=== PATIENT | male | born 1965 | race Caucasian/White ===

== ENCOUNTER 2025-03-08 06:58 | Emergency (ER) | payer BC, SELFPAY ==
--- NOTE | ~2025-03-08 | CT_ITS ---
EXAMINATION: CT ABDOMEN PELVIS WITHOUT IV CONTRAST HISTORY: hx of kidney stones, R side CV tenderness COMPARISON: Comparison is made with the prior examination dated 10/16/2018. TECHNIQUE: CT scan of the abdomen and pelvis was performed without contrast using standard departmental protocol. Coronal and sagittal reformatted images were generated and reviewed. Oral contrast material was not administered per department protocol. This CT exam was performed with one or more of the following dose reduction techniques: automated exposure control, adjustment of the mA and/or kV according to patient size, use of iterative reconstruction technique. DLP: 639 mGy-cm FINDINGS: LOWER CHEST: There is elevation of the right hemidiaphragm. The visualized lung bases are clear. There is no pleural effusion. CARDIOVASCULATURE: The heart is normal in size. There is no pericardial effusion. LIVER: The liver is normal in size and contour. The liver has an unremarkable unenhanced appearance. GALLBLADDER / BILE DUCTS: The gallbladder is unremarkable. There is no intra or extrahepatic biliary ductal dilatation. SPLEEN: The spleen is normal in size and has an unremarkable unenhanced appearance. PANCREAS: The pancreas has an unremarkable unenhanced appearance. ADRENAL GLANDS: Unremarkable. KIDNEYS/RETROPERITONEUM: There are multiple punctate nonobstructing calculi in the right kidney. Multiple nonobstructing left renal calculi are noted measuring up to 2 mm in size. There is mild right hydroureteronephrosis to the level of a 4 mm UVJ calculus. LYMPH NODES: No retroperitoneal lymphadenopathy is identified in the abdomen or pelvis. VASCULATURE: The abdominal aorta is normal in caliber. MESENTERY/PERITONEUM: No free fluid. No masses. There is no free intraperitoneal gas. STOMACH: There is a small hiatal hernia. The remainder of the stomach is unremarkable without intravenous contrast. SMALL BOWEL: The small bowel is normal in caliber. COLON: The colon is unremarkable. APPENDIX: Normal. URINARY BLADDER/PELVIC ORGANS: The urinary bladder is unremarkable. The prostate is normal in size. BONES / SOFT TISSUES: No suspicious bony or soft tissue abnormalities. CT/CT abdomen pelvis wo IV con IMPRESSION: Mild right hydroureteronephrosis to the level of a 4 mm UVJ calculus. Bilateral nephrolithiasis as described. Electronically signed by: Catalino Vizcarra MD 03/08/2025 08:06 AM [facility]
[2025-03-08 07:04] VITALS: BP 140/71; PULSE 76; RESP 18; TEMP 36.7; O2SAT 96; BMI 31.1
--- OUTSIDE RECORDS SUMMARY | 2025-03-08 07:26 | XMS_ITS | Encounter Summary ---
Author Organization [employer] Address [address] [place] [address] Care Team Providers Care Fuel Retrofitting Technician Name Role Phone Marina Rivero MD Primary Care Prov ider Reason for Visit * Reason Comments Med Refill Encounter Details Date Type Department Care Team ([facility] Contact Info) Description 03/05/2025 Telephone Adult Medicine [facility] [address] [place] [address] Marina Rivero MD [address] [place], [place] Social History Tobacco Use Types Packs/Day Years Used Date Smoking Tobacco: Former Smokeless Tobacco: Never Alcohol Use Standard Drinks/Week Comments No 0 (1 standard drink = 0.6 oz pur e alcohol) Housing Instability Answer Date Recorde d Are you worried that in the next 2 months you may not have stable housing? No 12/27/2024 Food Access & Nutrition Answer Date Rec orded Do you have access to a vari ety of food including fruits and vegetables? Yes 12/27/2024 Health Literacy Answer Date Recorded How often do you need to hav e someone help you when you read instructions, pamphlets, or other written material from your doctor or pharmacy? Never 12/27/2024 Caregiver: How often do you need to have someone help you when you read instructions, pamphlets, or other written material from your doctor or pharmacy? Not on file 12/27/2024 Financial Risk Answer Date Recorded How hard is it for you to pa y for the very basics like food, housing, medical care, and air conditioning / heating? Not very hard 12/27/2024 Transportation Answer Date Recorded Has the lack of transportati on kept you from meetings, work, or from getting things needed for daily living? No Has the lack of transportati on kept you from medical appointments or from getting medications? No 12/27/2024 Social Isolation Answer Date Recorded How often do you feel lonely or isolated from th ose around you? Never 12/27/2024 Food Risk Answer Date Recorded Within the past 12 months we worried whether our food would run out before we got money to buy more. Never true 12/27/2024 Within the past 12 months th e food we bought just didn't last and we didn't have money to get more. Never true 12/27/2024 Dependent Care Answer Date Recorded Do you need help finding or paying for care for your loved ones. For example, early childhood education worker or elderly care for an older adult? No 12/27/2024 Education Answer Date Recorded Do you think completing more education or training, like finishing a GED, going to college, or learning a trade, would be helpful for you? No 12/27/2024 Employment and Income Answer Date Recor ded During the last four weeks, have you been actively looking for work? No 12/27/2024 Living Situation Answer Date Recorded What is your living situation? Unrecognized valu e 12/27/2024 Sex and Gender Information Value Date Recorded Sex Assigned at Not on file Legal Sex Male 5:19 AM EST Gender Identity Not on file Sexual Orientation Not on file documented as of this encounter Ordered Prescriptions Prescription Sig Dispense Quantity Refills Last Filled Start Date End Date Ozempic 1 mg/dose (4 mg/3 mL) injection penIndications:Type 2 diabetes mellitus in patient with obesity (CMS/HCC V24, CMS/[facility] V28),Class 1 obesity due to excess calories with serious comorbidity and body mass index (BMI) of 31.0 to 31.9 in adult INJECT 1 MG UNDER THE SKIN EVERY 7 DAYS 9 mL 03/05/2025 documented in this encounter Progress Notes * AILIN Child - 03/05/2025 12:07 PM EST Rx approved, however patient overdue for appt. Please call to schedule with PCP documented in this encounter Plan of Treatment Not on file documented as of this encounter Visit Diagnoses Diagnosis Type 2 diabetes mellitus with obesity Class 1 obesity due to excess calories with serious comorbidity and body mass index (BMI) of 31.0 to 31.9 in adult documented in this encounter Discontinued Medications Medication Sig Discontinue Reason Start Date End Da te semaglutide (Ozempic) 1 mg/dose (4 mg/3 mL) injection penIndications:Type 2 diabetes mellitus in patient with obesity (CMS/HCC V24, CMS/HCC V28),Class 1 obesity due to excess calories with serious comorbidity and body mass index (BMI) of 31.0 to 31.9 in adult Inject 1 mg under the skin every 7 (seven) days. 12/27/2024 03/05/2025 documented as of this encounter Additional Health Concerns Assessment Noted Time PHQ-9 Depression Total Score: 0 12/28/19 1:00 PM EDT documented as of this encounter Care Teams Fuel Retrofitting Technician Relationship Specialty Start Date End Date Marina Rivero MD [address] [place] [phone] PCP - General Internal Medicine 03/23/24 documented as of this encounter
--- OUTSIDE RECORDS SUMMARY | 2025-03-08 07:26 | XMS_ITS ---
Author Name [facility] Organization Unknown Care Team Organization Name Specialty Phone Email Start Date End Da te [facility] Marina Ward Primary Care 01/19/2023 11/08/2023 [facility] NAIMA GAVIRIA Primary Care 12/23/2022 11/08/2023 [facility] Termed, PROVIDER Primary Care 01/27/202210/20
--- OUTSIDE RECORDS SUMMARY | 2025-03-08 07:26 | XMS_ITS | Clinical Summary ---
Author Organization [facility] [address] [place] [address] [place] [phone] Phone Care Team Providers Care White Metal Corrosion Proofer Name Role Phone Marina Rivero MD Primary Care Prov ider Allergies Active Allergy Reactions Criticality Noted Date Comments Oxycodone-Acetaminophen Itching Low 10/12/2011 Medications blood sugar diagnostic (FreeStyle Lite Strips) test strip 1 Strip by In Vitro route daily. 09/08/19 24 Active FREESTYLE LANCETS MISC 1 each by Not Applicable route 1 (one) time each day. 09/08/19 24 Active blood glucose control high,low (FreeStyle Control) solution Use as directed with test strips 01/21/20 23 Active fluticasone propion-salmete roL (Wixela Inhub) 100-50 mcg/dose diskus inhaler Inhale 1 puff by mouth 2 (two) times a day. 180 each 1 07/15/19 25 Active atorvastatin (LIPITOR) 40 mg tablet Take 1 tablet (40 mg total) by mouth 1 (one) time each day. 90 tablet 1 12/28/19 25 Active Ventolin HFA 90 mcg/actuation inhaler INHALE 2 PUFFS INTO THE LUNGS EVERY 4 HOURS NEEDED FOR COUGH OR WHEEZING 18 g 01/05/20 25 Active Ozempic 1 mg/dose (4 mg/3 mL) injection penIndications: Type 2 diabetes mellitus in patient with obesity (CMS/HCC V24, CMS/HCC V28),Class 1 obesity due to excess calories with serious comorbidity and body mass index (BMI) of 31.0 to 31.9 in adult INJECT 1 MG UNDER THE SKIN EVERY 7 DAYS 9 mL 03/05/20 Active semaglutide (Ozempic) 1 mg/dose (4 mg/3 mL) injection penIndications: Type 2 diabetes mellitus in patient with obesity ([facility] V24, [facility] V28),Class 1 obesity due to excess calories with serious comorbidity and body mass index (BMI) of 31.0 to 31.9 in adult Inject 1 mg under the skin every 7 (seven) days. 9 mL 12/28/19 25 025 Discontinued Active Problems Problem Noted Date Diagnosed Date Mild persistent asthma without complication 08/20 Type 2 diabetes mellitus wit hout complication, without long-term current use of insulin 01/08/2021 Obesity (BMI 30.0-34.9) 12/11/2020 Type 2 diabetes mellitus with obesity 11/04/2020 Overview (12/20/2024): 12/20/24 Regulatory IMO Update Obstructive sleep apnea 09/09/2015 Urolithiasis 06/07/2012 Asthma 05/03/2012 Knee pain 12/17/2011 Overview (01/10/2024): Sees Ortho - Dr. Sandhu, cortisone shots Acid reflux 12/17/2011 Dyslipidemia 10/12/2011 Encounters Date Type Department Care Team Description 03/05/2025 Telephone Adult Medicine [address] [phone] Marina Rojas MD 12/28/2024 Results Follow-Up Adult Medicine [address] [phone] Sherrell Stevenson PA 12/27/2024 1:15 PM EDT Office Visit Adult Medicine [address] [phone] Sherrell [place] PA Type 2 diabetes mellitus with obesity (Primary Dx); Hypercholesterolemia ; Class 1 obesity due to excess calories with serious comorbidity and body mass index (BMI) of 31.0 to 31.9 in adult; Acute bacterial sinusitis; Cough, unspecified type from Last 3 Months Immunizations Immunization Administration Dates Next Due Influenza trivalent, with pr eservative (Fluzone; Afluria) 6mo and older 05/27/2009 Pfizer SARS-CoV-2 COVID-19, mRNA, LNP-S, preservative free 07/18/2020,06/26/2020 Pneumococcal polysaccharide 23 valent (Pneumovax 23) 2yo and older 06/05/2013 Td Tetanus diptheria (Tdvax) 7yo and older 04/04 Tdap Tetanus diptheria acell ular pertussis (Boostrix; Adacel) 7yo and older 05/27/2009 Surgical History Surgery Date Site/Laterality Comments OTHER SURGICAL HISTORY PROCEDURE: HISTORY OTHER; COMMENT: cyst in chest removed as baby ELBOW SURGERY PROCEDURE: HISTORICAL ELBOW SURGERY; COMMENT: ORIF FOOT SURGERY PROCEDURE: HISTORICAL FOOT SURGERY; COMMENT: left ankle tendon repair VASECTOMY PROCEDURE: HISTORICAL VASECTOMY Medical History Medical History Date Comments Esophageal reflux DX:Esophageal reflux Unspecified essential hypertension DX:Unspecified essential hypertension Asthma 05/03/2012 DX:Asthma Family History Medical History Relation Name Comments CABG Brother Diabetes Brother Asthma Father mother and brot her, and kids Cataracts Father Heart attack Father x3, diabetes, a sthma, cataract, hypertension Lung cancer Maternal Grandfather Cataracts Mother Heart attack Mother , asthma, c ataract Stroke Paternal Grandfather Strabismus Son Blindness Neg Hx Colon cancer Neg Hx Glaucoma Neg Hx Macular degeneration Neg Hx Prostate cancer Neg Hx Relation Name Status Comments Brother Alive Father Maternal Grandfather Mother Paternal Grandfather Son Social History Tobacco Use Types Packs/Day Years [...] care for your loved ones. For example, child psychology teacher or elderly care for an older adult? [...] on file Sexual Orientation Not on file Last Filed Vital Signs Vital Sign Reading Time Taken Comments Blood Pressure 130/79 12/27/2024 12:51 PM EDT Pulse 60 12/27/2024 12:51 PM EDT Temperature 36.4 C (97.6 F) 12/27/2024 12:51 PM EDT Respiratory Rate 18 12/27/2024 12:51 PM EDT Oxygen Saturation 97% 12/27/2024 12:51 PM EDT Inhaled Oxygen Concentration - - Weight 95.7 kg (211 lb) 12/27/2024 12:51 PM EDT Height 175.3 cm (5' 9 ) 12/27/2024 12:51 PM EDT Body Mass Index 31.16 12/27/2024 12:51 PM EDT Plan of Treatment Health Maintenance Due Date Last Done Comments Hepatitis B Vaccines (1 of 3 - 19+ 3-dose series) 1984 Pneumococcal Vaccine: 50+ Years (2 of 2 - PCV) 06/05/2014 06/05/2013 RSV Immunization Adult Patients (1 - Risk 50-74 years 1-dose series) 07/18/2015 Zoster Vaccines (1 of 2) 07/18/2015 HIV Screening 02/28/2022 Diabetes: Annual Retina Eye Exam 11/09/2024 11/10/2023, 07/22/2023 Colorectal Cancer Screening: FIT-DNA (Cologuard) 06/03/2025 06/03/2022, 06/03/2022, 06/03/2022 Diabetes: Blood Sugar Contro l Test (HGBA1C) 06/28/2025 12/28/2024, 09/08/2023, 09/08/2023 Influenza Vaccine (#1) 2025 05/27/2009 Postp oned from 11/20/2024 (Patient Refused) Diabetes: Annual Foot Exam 12/27/202512/27, 01/10/2024 Social Influencers of Health Screening 12/27/2025 12/27/2024 Diabetes: Annual Urine Albumin-Creatinine Ratio (uACR) 12/28/2025 12/28/2024, 12/31/2022 Diabetes: Annual GFR (Glomerular Filtration Rate) 12/28/2025 12/28/2024 Cholesterol Screening (Lipid Panel) 12/28/2029 12/28/2024, 12/31/2022 DTaP,Tdap,and Td Vaccines (3 - Td or Tdap) 04/04/2030 04/04/2020, 05/27/2009 Hepatitis C Screening Completed 05/06/2017 COVID-19 Vaccine Discontinued 04/03/2021, 07/18/2020, 06/26/2020 Depression Screening Completed 12/27/2024, 04/06/2023 HIB Vaccines Aged Out No longer eligi ble based on patient's age to complete this topic HPV Vaccines Aged Out No longer eligi ble based on patient's age to complete this topic Hepatitis A Vaccines Aged Out No long er eligible based on patient's age to complete this topic IPV Vaccines Aged Out No longer eligi ble based on patient's age to complete this topic MMR Vaccines Aged Out No longer eligi ble based on patient's age to complete this topic Meningococcal ACWY Vaccine Aged Out N o longer eligible based on patient's age to complete this topic Meningococcal B Vaccine Aged Out No l onger eligible based on patient's age to complete this topic RSV Immunization Patients Under 20 months Aged Out No longer eligible b ased on patient's age to complete this topic Varicella Vaccines Aged Out No longer eligible based on patient's age to complete this topic Procedures Procedure Name Priority Date/Time Associated Diagnosis Comments COMPREHENSIVE METABOLIC PANEL Routine 12/28/2024 7:44 AM EDT Type 2 diabetes mellitus with obesity HEMOGLOBIN A1C Routine 12/28/2024 7:44 AM EDT Type 2 diabetes mellitus with obesity LIPID PANEL WITH REFLEX TO DIRECT LDL Routine 12/28/2024 7:44 AM EDT Type 2 diabetes mellitus with obesity MICROALBUMIN CREATININE URINE RATIO Routine 12/28/2024 7:44 AM EDT Type 2 diabetes mellitus with obesity POC INFLUENZA A/B Routine 12/27/2024 1:1 5 PM EDT Cough, unspecified type POC RAPID [id number], MOLECULAR Routine 12/27/2024 1:14 PM EDT Cough, unspecified type DIABETES FOOT EXAM Routine 01/10/2024 DIABETES EYE EXAM Routine 11/10/2023 DEPRESSION SCREENING Routine 04/06/2023 FIT-DNA Routine 06/03/2022 HEPATITIS C SCREENING Routine 05/06/2017 from Last 3 Months or Most Recently Relevant to Health Maintenance Results * Lipid panel with reflex to direct LDL (12/28/2024 7:44 AM EDT) Cholesterol 134 0 - 200 mg/dL LAB CHEMISTRY METHOD 12/28/2024 11:20 AM EDT [facility] Triglycerides 55 0 - 150 mg/dL LAB CHEMISTRY METHOD 12/28/2024 11:20 AM EDT [facility] HDL 59 >=40 mg/dL LAB CHEMISTRY METHOD 12/28/2024 11:20 AM [facility] LDL Calculated 64 0 - 100 mg/dL LAB CHEMISTRY METHOD 12/28/2024 11:20 AM EDT [facility] Comment:Estimated LDL Calcul ated using equation: Total cholesterol - HDL cholesterol - (Triglycerides/5) VLDL Cholesterol Parmjit 11 mg/dL LAB CHEMISTRY METHOD 12/28/2024 11:20 AM T [facility] Non HDL Chol. (LDL+VLDL) 75 <145 mg/dL LAB CHEMISTRY METHOD 12/28/2024 11:20 AM [facility] Chol/HDL Ratio 2.3 0.0 - 4.4 LAB CHEMISTRY METHOD 12/28/2024 11:20 AM T [facility] Blood Venous blood specimen / Unknown Venipuncture / Unknown 12/28/2024 7:44 AM EDT 12/28/2024 7:44 AM EDT us Sherrell PARISI LAB BLOOD ORDERABLES Final Resu lt [facility] [address] [place] [address], [place] [phone] * Microalbumin creatinine urine ratio (12/28/2024 7:44 AM EDT) Creatinine, Urine 126.0 mg/dL LAB CHEMISTRY METHOD 12/28/2024 11:25 AM EDT [facility] Microalb, Ur 12.5 0.0 - 29.0 mg/L LAB CHEMISTRY METHOD 12/28/2024 11:25 AM EDT [facility] Microalb/Creat Ratio 10 <30 mg/g creat LAB CHEMISTRY METHOD 12/28/2024 11:25 AM EDT [facility] Urine Urine specimen obtained by clean catch procedure / Unknown Non-blood Collection / Unknown 12/28/2024 7:44 AM EDT 12/28/2024 7:44 AM EDT Sherrell PARISI LAB URINE ORDERABLES Final Resu lt Performing Organization Address [facility]/ZIP Co de Phone Number [facility] [address] [place] [address], [place] [phone] * (ABNORMAL) Hemoglobin A1c (12/28/2024 7:44 AM EDT) Pathologist [facility] Hemoglobin A1C 7.1(H) <6.5 % LAB CHEMISTRY METHOD 12/28/2024 12:27 PM EDT [facility] Mean Bld Glu Estim. 157 mg/dL LAB CHEMISTRY METHOD 12/28/2024 12:27 PM EDT [facility] Blood Venous blood specimen / Unknown Venipuncture / Unknown 12/28/2024 7:44 AM EDT 12/28/2024 7:44 AM EDT us Sherrell PARISI LAB BLOOD ORDERABLES Final Resu lt [facility] [address] [place] [address], [place] [phone] * (ABNORMAL) Comprehensive metabolic panel (12/28/2024 7:44 AM EDT) [facility] Sodium 135 133 - 145 mmol/L LAB CHEMISTRY METHOD 12/28/2024 11:20 AM [facility] Potassium 4.6 3.5 - 5.5 mmol/L LAB CHEMISTRY METHOD 12/28/2024 11:20 AM [facility] Chloride 101 96 - 110 mmol/L LAB CHEMISTRY METHOD 12/28/2024 11:20 AM [facility] CO2 27 21 - 32 mmol/L LAB CHEMISTRY METHOD 12/28/2024 11:20 AM [facility] Anion Gap 7 3 - 11 LAB CHEMISTRY METHOD 12/28/2024 11:20 AM [facility] Glucose 192(H) 70 - 100 mg/dL LAB CHEMISTRY METHOD 12/28/2024 11:20 AM [facility] BUN 21 5 - 25 mg/dL LAB CHEMISTRY METHOD 12/28/2024 11:20 AM [facility] Creatinine 0.88 0.70 - 1.30 mg/dL LAB CHEMISTRY METHOD 12/28/2024 11:20 AM [facility] eGFR 99 >=60 mL/min/1. 73m2 LAB CHEMISTRY METHOD 12/28/2024 11:20 AM [facility] Comment:Calculation based on the Chronic Kidney Disease Epidemiology Collaboration (CKD-EPI) equation refit without adjustment for race. BUN/Creatinine Ratio 23.9 LAB CHEMISTRY METHOD 12/28/2024 11:20 AM [facility] Calcium 9.8 8.5 - 10.5 mg/dL LAB CHEMISTRY METHOD 12/28/2024 11:20 AM [facility] AST (SGOT) 24 10 - 42 unit/L LAB CHEMISTRY METHOD 12/28/2024 11:20 AM [facility] ALT (SGPT) 59 10 - 60 unit/L LAB CHEMISTRY METHOD 12/28/2024 11:20 AM [facility] Alkaline Phosphatase 51 42 - 121 unit/L LAB CHEMISTRY METHOD 12/28/2024 11:20 AM EDT [facility] Total Protein 8.0 6.0 - 8.0 g/dL LAB CHEMISTRY METHOD 12/28/2024 11:20 AM EDT [facility] Albumin 3.9 3.2 - 5.0 g/dL LAB CHEMISTRY METHOD 12/28/2024 11:20 AM EDT [facility] Total Bilirubin 0.7 0.0 - 1.4 mg/dL LAB CHEMISTRY METHOD 12/28/2024 11:20 AM EDT [facility] Blood Venous blood specimen / Unknown Venipuncture / Unknown 12/28/2024 7:44 AM EDT 12/28/2024 7:44 AM EDT Sherrell PARISI LAB BLOOD ORDERABLES Final Resu lt [facility] [address] [place] [address], [place] [phone] * POC Influenza A/B manually resulted (12/27/2024 1:15 PM EDT) [facility] Rapid Influenza A AGN POC Negative Negative Rapid Influenza B AGN POC Negative Negative Internal Control Pass Yes Yes Swab 12/27/2024 1:15 PM EDT Sherrell PARISI POINT OF CARE TEST ENTER/EDIT O RDERABLES Final Result * Poc Rapid [id number], MOLECULAR (12/27/2024 1:14 PM EDT) [facility] COVID-19/SARS- COV-2 Rapid POC Negative Negative Internal Control Pass Yes Yes Swab Nasopharyngeal structure / Unknown 12/27/2024 1:14 PM EDT us Sherrell PARISI POINT OF CARE TEST ENTER/EDIT O RDERABLES Final Result * Diabetes Foot Exam (01/10/2024) [facility] Diabetes: Annual Foot Exam Abstracted Result [facility] Provider HEALTH MAINTENANCE Final Result * Diabetes Eye Exam (11/10/2023) [facility] Diabetes: Annual Retina Eye Exam Abstracted Result [facility] Provider HEALTH MAINTENANCE Final Result * Depression Screening (04/06/2023) [facility] Depression Screening Abstracted Result [facility] Provider HEALTH MAINTENANCE Final Result * FIT-DNA (Cologuard) (06/03/2022) [facility] Colorectal Cancer Screening: FIT-DNA (Cologuard) Negative, Abstracted Result [facility] Provider HEALTH MAINTENANCE Final Result * Hepatitis C Screening (05/06/2017) [facility] Hepatitis C Screening Abstracted Result [facility] Provider HEALTH MAINTENANCE Final Result from Last 3 Months or Most Recently Relevant to Health Maintenance Insurance [facility] Care Teams White Metal Corrosion Proofer Relationship Specialty Start Date End Date Marina Rivero MD [address] [place] [address] PCP - General Internal Medicine 03/23/24
[2025-03-08 07:28] LABS: Appearance Urine Clear; Glucose Urine UA Negative (Negative); PH 5.5 (5.0-9.0); Specific Gravity - Urine 1.025 (1.005-1.025); UMIC TRIGGER UACC YES
--- NOTE | 2025-03-08 07:39 | ED_ITS ---
HPI - Male Genitourinary General Chief complaint: Urogenital-Male Stated complaint: kidney stones Time Seen by Provider: 03/08/25 07:22 Source: patient, family, RN notes reviewed and old records reviewed Mode of arrival: ambulatory Limitations: no limitations History of Present Illness ED Provider: FELISHA Howard HPI Narrative: 59-year-old male with medical history of nephrolithiasis requiring lithotripsy presents to the ED due to 4 days of right-sided flank pain that radiates to the right groin. Patient states yesterday at work noticed blood in his urine. Patient states he woke up today to go to work and had 2 episodes of nausea and vomiting with increased pain of the right flank and groin. Patient states the pain has been constant And has not taken OTC medication for pain management at home. Patient states last night he experienced some chills. Denies fever, chest pain, shortness of breath, diarrhea, testicular pain, penile discharge, headaches, visual changes Related Data Previous Rx's ?Medication ?Instructions ?Recorded morphine 15 mg immediate release 15 mg PO Q4-6H PRN pa in #15 tabs 03/08/25 tablet ondansetron HCl 4 mg tablet 4 mg PO Q8H PRN nausea and 03/08/25 vomiting 5 days #15 tabs prednisone 20 mg tablet 20 mg PO DAILY #5 tabs 03/08 tamsulosin 0.4 mg capsule 0.4 mg PO DAILY 2 weeks #14 caps 03/08/25 Allergies Allergy/AdvReac Type Severity Reaction Status Date / Time oxycodone (From PERCOCET) Allergy Mild ITCHINESS Verified 03/08/25 07:07 Review of Systems 2 Review of Systems: Yes all other systems are reviewed and are negative PMFSH Past Medical History Attestation statement: The following information was validated with the patient. Source: old records reviewed, obtained from family and nursing notes reviewed Social History Social History Advance Directives: No Advance Directives Information Provided: Yes Physical Exam 2 Vital Signs: Vital Signs: Last Vital Signs Temp 98.1 F 03/08/25 07:04 Pulse 76 03/08/25 07:04 Resp 18 03/08/25 07:04 BP 140/71 H 03/08/25 07:04 Pulse Ox 96 03/08/25 07:04 O2 Del Method Room Air 03/08/25 07:04 BMI result Body Mass Index 31.1 GENERAL APPEARANCE: ?AxOx4, nontoxic appearing, no acute distress. HEENT: ?NC, AT. MMM. EOMI, clear conjunctiva, oropharynx clear. NECK: ?Supple without lymphadenopathy.? No stiffness or restricted ROM. HEART:? Normal rate and regular rhythm, normal S1/S2, no m/r/g LUNGS:? CTAB, moving air well. No crackles or wheezes are heard. ABDOMEN: ?Soft, nondistended, no rigidity, no guarding, negative Dominguez's sign, no rebound tenderness, mild diffuse tenderness on palpating the right lower abdomen, no overlying skin changes BACK: significant right-sided CVAT, no overlying skin change, no midline spinal tenderness ,no obvious deformity. EXTREMITIES: ?Without cyanosis, clubbing or edema. NEUROLOGICAL: ?Grossly nonfocal. Alert and oriented, moving all 4 extremities. Skin: ?Warm and dry without any rash. Medications Administered Discontinued Medications Generic Name Dose Route Start Last Admin Trade Name Freq PRN Reason Stop Dose Admin Acetaminophen 1,000 mg in 100 mls @ 400 mls/hr 03/08/25 07:38 03/08/25 08:48 Ofirmev IV 03/08/25 07:52 Infused ONCE ONE Infusion Morphine Sulfate 4 mg 03/08/25 07:38 03/08/25 08:30 Morphine Sulfate 4 Mg/Ml Cartridge IVPUSH 03/08/25 07:39 4 mg ONCE ONE Administration Protocol Ondansetron HCl 4 mg 03/08/25 08:33 03/08/25 08:38 Ondansetron Hcl 4 Mg/2 Ml Vial IVPUSH 03/08/25 08:34 4 mg ONCE ONE Administration Medical Decision Making Medical Decision Making MDM Narrative: 59-year-old male with medical history of nephrolithiasis, HLD, asthma requiring lithotripsy presents to the ED due to 4 days of right-sided flank pain that radiates to the right groin with 1 day of visible blood in the urine, and 2 episodes of nausea and vomiting this morning while at work. VS on initial observation - BP 140/71, pulse rate is 76, respiratory rate of 18, afebrile with oral temp of 98.1?, O2 saturation 96% on room air. On physical exam patient is well-appearing, nontoxic appearing, in no acute distress, lungs clear to auscultation bilaterally, cardiac exam reveals normal rate and rhythm without murmurs/rubs / gallops, abdomen is soft, nondistended, no rigidity, with mild diffuse tenderness on palpating the RLQ with significant right-sided CVAT, no overlying skin changes, lower extremities without edema, overlying skin changes plan: Labs, UA, CT abdomen and pelvis - Patient being medicated with 4 mg IV morphine, 1 g IV Tylenol for pain management Labs significant for a leukocytosis of 16.3, left shift of 86.8,no evidence of anemia, Hyponatremia of 134, total bilirubin elevated at 1.2 however patient without RUQ pain,UA reveals 3+ urine blood, <20 urine RBCs, with 0-5 urine WBCs, 0-2 squamous epithelial cells, without urine bacteria. Elevated WBC most likely demarginalization. Patient with 4 days of right-sided flank pain that is radiating to the right groin with visualize blood in the urine, 2 episodes of nausea and vomiting this morning. Patient labs significant for leukocytosis of 16.3 and left shift of 86.8, however this is most likely due to the marginalization as the urine shows presence of RBCs, without indication of bacteria or increased WBC's, Patient is afebrile with oral temp of 98.1?, less likely pyelonephritis. CT abdomen and pelvis reveals multiple punctate nonobstructing calculi in bilateral kidneys with miild right-sided hydroureteronephrosis due to a 4 mm UVJ stone. Patient Required 4 mg IV morphine x2 for pain control while in the department. Patient will be discharged with 2 week course of tamsulosin, 5 day course of 20 mg prednisone, oral morphine, and Zofran for management of nonobstructing nephrolithiasis. I have placed referral to [facility] for patient to follow up with. I counseled patient not to take NSAIDs while on prednisone, and to manage his pain with oral Tylenol, and morphine for breakthrough pain as needed. Patient well enough to go home for self-care. Patient and his are in agreement with the plan. Differential Diagnosis Differential Diagnoses: The differential diagnosis associated with the presentation includes Pyelonephritis Nephrolithiasis UTI Inguinal hernia Femoral hernia Admission/Observation Consideration of admission/observation: Escalation of care including admission/observation considered I considered admission however patient with a nonobstructing nephrolithiasis, currently afebrile, does have a leukocytosis of 16.3 however this is most likely demarginalization as patient is afebrile, and UA without evidence of bacteria, or increased WBCs Lab Data MDM Lab Attestation statement: I reviewed the patient's lab results. 03/08/25 08:36 03/08/25 08:37 Labs: Lab Results 03/08/25 03/08/25 03/08/25 Range/Units 07:17 08:36 08:37 WBC 16.3 H (4.8-10.8) X10*3/uL RBC 5.18 (4.60-5.80) X10*6/uL Hgb 14.7 (14.0-18.0) g/dl Hct 44.5 (42.0-52.0) % MCV 85.9 (80.0-98.0) fL MCH 28.4 (27.0-33.0) pg MCHC 33.0 (31.0-36.0) g/dl RDW 12.7 (11.0-16.0) % Plt Count 217 (160-400) X10*3/uL MPV 9.8 (9.4-12.4) fL Immature Gran % (Auto) 0.9 H (0.0-0.4) % Neut % (Auto) 86.8 H (45-73) % Lymph % (Auto) 5.8 L (20-40) % [place] % (Auto) 5.3 (2-11) % Eos % (Auto) 0.7 (0-4) % Baso % (Auto) 0.5 (0-2) % Lymph # (Auto) 1.0 L (1.2-4.9) X10*3/uL [place] # (Auto) 0.9 (0.1-1.2) X10*3/uL Eos # (Auto) 0.1 (0.0-0.4) X10*3/uL Baso # (Auto) 0.1 (0.0-0.2) X10*3/uL Abs Immat Gran (auto) 0.14 H (0.00-0.03) X10*3/uL Absolute Neuts (auto) 14.1 H (2.0-8.3) x10*3/uL Absolute Nucleated RBC 0.000 (0.0-0.012) X10*3/uL Nucleated RBC % (auto) 0.0 (0.0-0.2) /100WBC Sodium Cancelled Potassium Cancelled Chloride Cancelled Carbon Dioxide Cancelled Anion Gap Cancelled BUN Cancelled Creatinine Cancelled Estim Creat Clear Calc Cancelled Estimated GFR Cancelled Random Glucose Cancelled Calcium Cancelled Total Bilirubin Cancelled AST Cancelled ALT Cancelled Alkaline Phosphatase Cancelled Total Protein Cancelled Albumin Cancelled Urine Color Yellow Urine Appearance Clear Urine pH 5.5 (5.0-9.0) Ur Specific [place] 1.025 (1.005-1.025) Urine Protein Negative (Neg-Trace) mg/dL Urine Glucose (UA) Negative (Negative) mg/dL Urine Ketones Negative (Negative) mg/dL Urine Blood Large (3+) H (Negative) Urine Nitrite Negative (Negative) Ur Leukocyte Esterase Negative (Negative) Urine RBC >20 H (0-2) /HPF Urine WBC 0-5 (0-5) /HPF Ur Squamous Epith Cells 0-2 (0-2) /HPF Urine Bacteria None Seen (None Seen) Hyaline Casts 0-2 (0-2) /LPF Independent Interpretation I performed an independent interpretation of an: CT Scan Interpretation: I personally interpreted the CT abdomen and pelvis which shows nonobstructing nephrolithiasis, I agree with the radiologist's interpretation Radiology Impression Discussion of test interpretation with radiology: I have reviewed the radiologist's reading. Radiologist Impression: CT abdomen and pelvis FINDINGS: LOWER CHEST: There is elevation of the right hemidiaphragm. The visualized lung bases are clear. There is no pleural effusion. CARDIOVASCULATURE: The heart is normal in size. There is no pericardial effusion. LIVER: The liver is normal in size and contour. The liver has an unremarkable unenhanced appearance. GALLBLADDER / BILE DUCTS: The gallbladder is unremarkable. There is no intra or extrahepatic biliary ductal dilatation. SPLEEN: The spleen is normal in size and has an unremarkable unenhanced appearance. PANCREAS: The pancreas has an unremarkable unenhanced appearance. ADRENAL GLANDS: Unremarkable. KIDNEYS/RETROPERITONEUM: There are multiple punctate nonobstructing calculi in the right kidney. Multiple nonobstructing left renal calculi are noted measuring up to 2 mm in size. There is mild right hydroureteronephrosis to the level of a 4 mm UVJ calculus. LYMPH NODES: No retroperitoneal lymphadenopathy is identified in the abdomen or pelvis. VASCULATURE: The abdominal aorta is normal in caliber. MESENTERY/PERITONEUM: No free fluid. No masses. There is no free intraperitoneal gas. STOMACH: There is a small hiatal hernia. The remainder of the stomach is unremarkable without intravenous contrast. SMALL BOWEL: The small bowel is normal in caliber. COLON: The colon is unremarkable. APPENDIX: Normal. URINARY BLADDER/PELVIC ORGANS: The urinary bladder is unremarkable. The prostate is normal in size. BONES / SOFT TISSUES: No suspicious bony or soft tissue abnormalities. CT/CT abdomen pelvis wo IV con IMPRESSION: Mild right hydroureteronephrosis to the level of a 4 mm UVJ calculus. Bilateral nephrolithiasis as described. Electronically signed by: Catalino Vizcarra MD 03/08/2025 08:06 AM [facility] Independent Historian Clinical information obtained from an independent historian. History obtained from or confirmed by: Spouse ( at bedside corroborating history) External Record Review External record reviewed: Inpatient record, Office record, Outpatient record and Prior outpatient labs Prescription Management I considered prescription management with: Antibiotic I considered antibiotics however UA without urine bacteria, increased WBCs, no indication for antibiotics at this time Chronic Conditions Patient?s care impacted by: Other ( nephrolithiasis, HLD, asthma) Discharge Plan Discharge Clinical Impression: Kidney stones Patient Disposition: Home, Self-Care Additional Instructions: you were evaluated in the emergency department due to right-sided back pain extending into the right abdomen. Your CT abdomen and pelvis reveals multiple kidney stones with a 4 mm kidney stone in the right kidney causing mild dilation of the kidney and ureter. Your urine today shows evidence of blood, but no evidence of bacteria or infection. You are being discharged with 2 weeks of tamsulosin which is a smooth muscle relaxer that axial in the ureters to help the body pass the stone, 5 day course of prednisone for inflammation, and 5 day course of oral morphine for pain management. While on prednisone do not take any other NSAIDs such as ibuprofen, Motrin, Aleve, Naprosyn, meloxicam until you finish the course. You can resume your meloxicam after prednisone is finished. You can take 500 mg of Tylenol every 5 hours for pain relief, and use morphine for breakthrough pain. I encourage you to get plenty of oral hydration as this can help you pass the stone. [facility] will be contacting you within 2 business?days after being discharged from the Emergency?Department.? During this?phone call, they will inform you when your follow up appointment will be scheduled. If you have not received a call from [facility] after 2 business?days, please call the?office at [phone]. Please return to the emergency department if you experience fevers over 100.4?, worsening left-sided back and/or abdominal pain, inability to urinate, or any new/worsening/concerning symptoms. Prescriptions: New tamsulosin 0.4 mg capsule 0.4 mg PO DAILY 14 Days Qty: 14 0RF ondansetron HCl 4 mg tablet 4 mg PO Q8H PRN (Reason: nausea and vomiting) 5 Days Qty: 15 0RF prednisone 20 mg tablet 20 mg PO DAILY Qty: 5 0RF morphine 15 mg tablet 15 mg PO Q4-6H PRN (Reason: pain) Qty: 15 0RF Rx Instructions: Partial Fill upon patient request. Print Language: Upper Sorbian
[2025-03-08 08:45] LABS: MANUAL DIFF FLAG NO
[2025-03-08 08:48] LABS: Hematocrit 44.5 % (42.0-52.0); Hemoglobin 14.7 g/dl (14.0-18.0); Imm Gran Abs Auto 0.14 X10*3/uL (0.00-0.03); Imm Gran Pct Auto 0.9 % (0.0-0.4); Lymphocytes Absolute Auto 1.0 X10*3/uL (1.2-4.9); Mean Corpuscular HGB Conc 33.0 g/dl (31.0-36.0); Mean Corpuscular Hemoglobin 28.4 pg (27.0-33.0); Mean Corpuscular Volume 85.9 fL (80.0-98.0); NRBC Abs Auto 0.000 X10*3/uL (0.0-0.012); NRBC Pct Auto 0.0 /100WBC (0.0-0.2); Platelet Count 217 X10*3/uL (160-400); Red Blood Count 5.18 X10*6/uL (4.60-5.80); White Blood Count 16.3 X10*3/uL (4.8-10.8)
[2025-03-08 09:49] VITALS: BP 118/71; PULSE 73; RESP 16; TEMP 36.8; O2SAT 94
[2025-03-08 09:50] LABS: Alanine Aminotransferase 24 U/L (0-40); Albumin Level 3.9 g/dL (3.5-5.0); Alkaline Phosphatase 39 U/L (39-117); Anion Gap 12 (12-20); Aspartate Amino Transferase 28 U/L (5-37); Blood Urea Nitrogen 17 mg/dL (9-16); Calcium 8.9 mg/dL (8.4-10.2); Carbon Dioxide 23 mmol/L (22-29); Chloride 104 mmol/L (96-108); Creatinine Clr Calc Pharmacy 101.5; Estimated Glomerular Filt Rate > 60; Magnesium 1.7 mg/dL (1.6-2.6); Potassium 4.7 mmol/L (3.3-5.1); Sodium 134 mmol/L (135-145); Total Protein 7.2 g/dL (6.5-8.0)
[2025-03-08 10:19] VITALS: BP 118/71; PULSE 73; RESP 16; TEMP 36.8; O2SAT 94
== END 2025-03-08 10:19 | disposition home or self-care (01) ==
PROVIDERS: Emergency Provider Emergency Medicine Emergency Medical Services
DX: N13.2 Hydronephrosis with renal and ureteral calculous obstruction (principal); R10.31 Right lower quadrant pain; Z87.442 Personal history of urinary calculi
CPT/HCPCS: 36415; 74176; 80053; 81001; 83735; 85025; 96365; 96375; 99284; J0131; J2270; J2405

== ENCOUNTER → 2025-03-08 07:37 | Outpatient (BNV) | payer BC, SELFPAY | PROVIDERS: Emergency Provider Emergency Medicine Emergency Medical Services; Visit Provider Radiology Diagnostic Radiology | DX: N13.2 Hydronephrosis with renal and ureteral calculous obstruction (principal) | CPT/HCPCS: 74176 ==